=== PATIENT | female | born 1990 | race Caucasian/White ===

== ENCOUNTER 2018-06-22 05:07 | Emergency (ER) | payer OTHER ==
[2018-06-22] MEDS ORDERED: KETOROLAC 30 MG/ML INJ ONE (05:41)
[2018-06-22 06:01] LABS: Absolute Lymphocytes (CBC) 0.9 K/uL (0.7-4.9); Absolute Monocytes 0.6 K/uL (0.1-1.3); Absolute Neutrophil 6.6 K/uL (1.8-8.0); Basophils % 0.4 % (0-1.3); Eosinophils % 0.8 % (0-4.4); Hematocrit 37.1 % (36.0-45.0); Lymphocytes % 10.8 % (15.3-44.8); MPV 8.4 fL (7.6-11.3); Monocytes % 7.1 % (3.3-12.3); Protime INR 1.03
[2018-06-22 06:04] LABS: ALT/SGPT 14 U/L (12-78); AST/SGOT 16 U/L (15-37); Albumin 3.7 g/dL (3.4-5.0); Alkaline Phosphatase 90 U/L (45-117); BUN Blood Urea Nitrogen 13 mg/dL (7-18); Bicarbonate 21 mmol/L (21-32); Bilirubin Direct 0.2 mg/dL (0-0.2); Bilirubin Total 0.6 mg/dL (0.2-1.0); Glucose Level 101 mg/dL (74-106); Magnesium 1.6 mg/dL (1.8-2.4); NT PRO-BNP 80 pg/mL (<125); Potassium 3.5 mmol/L (3.5-5.1); Protein, Total 7.8 g/dL (6.4-8.2); Sodium Level 139 mmol/L (136-145); Troponin (Emerg Dept Use Only) < 0.02 ng/mL (0.0-0.045)
--- NOTE | 2018-06-22 06:36 | ER ---
Nurse's Notes [facility] Name: Iman Noguera Age: 28 yrs Sex: Female : 1990 Arrival Date: 06/22/2018 Time: 05:09 Bed 6 Private MD: Diagnosis: Myalgia;Lupus erythematosus Presentation: 06/22 05:18 Presenting complaint: Patient states: I have lupus and I'm having a flare up. My joints tl2 hurt really bad and it hurts to breathe. I have to take small short breaths and it feels like I'm not getting enough air so then I have to take a deeper breath and it hurts all the way to my back. Transition of care: patient was not received from another setting of care. Onset of symptoms was June 22, 2018 at 03:30. Risk Assessment: Do you want to hurt yourself or someone else? Patient reports no desire to harm self or others. Initial Sepsis Screen: Does the patient meet any 2 criteria? No. Patient's initial sepsis screen is negative. Does the patient have a suspected source of infection? No. Patient's initial sepsis screen is negative. Care prior to arrival: None. 05:18 Method Of Arrival: Wheelchair tl2 05:18 Acuity: DEBBY 3 tl2 Triage Assessment: 05:21 General: Appears in no apparent distress. uncomfortable, Behavior is cooperative, tl2 appropriate for age, anxious. Pain: Complains of pain in back and chest Pain currently is 10 out of 10 on a pain scale. Aggravated by increased activity, respiration. Neuro: Level of Consciousness is awake, alert, obeys commands, Oriented to person, place, time, situation. Cardiovascular: Chest pain is described as diffuse, is aggravated by breathing. Respiratory: Reports shortness of breath pain with respiration Breath sounds are clear bilaterally. Onset: The symptoms/episode began/occurred today, the patient has moderate shortness of breath. GI: No signs and/or symptoms were reported involving the gastrointestinal system. : No signs and/or symptoms were reported regarding the genitourinary system. Derm: Skin is pink, warm \T\ dry. 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 - Social history:: Smoking status: Patient/guardian denies using tobacco. - Ebola Screening: : No symptoms or risks identified at this time. Screenin:23 Abuse screen: Denies threats or abuse. Nutritional screening: No deficits noted. tl2 Tuberculosis screening: No symptoms or risk factors identified. Fall Risk None identified. Assessment: 05:21 General: see triage assessment. tl2 05:24 Cardiovascular: Rhythm is sinus rhythm. Respiratory: Airway is patent Respiratory tl2 effort is even, labored. 06:18 Reassessment: Patient appears in no apparent distress at this time. Patient and/or tl2 family updated on plan of care and expected duration. Pain level reassessed. Patient is alert, oriented x 3, equal unlabored respirations, skin warm/dry/pink. pt ambulatory to restroom Patient states feeling better. 06:42 Reassessment: Patient appears in no apparent distress at this time. Patient and/or tl2 family updated on plan of care and expected duration. Pain level reassessed. Patient is alert, oriented x 3, equal unlabored respirations, skin warm/dry/pink. pt verbalized understanding of discharge instructions, need for follow up and prescription usage Patient states feeling better. Vital Signs: 05:21 BP 116 / 90; Pulse 85; Resp 22; Temp 98.4(O); Pulse Ox 100% on R/A; Weight 45.36 kg; tl2 Height 5 ft. 0 in. (152.40 cm); Pain 10/10; 06:18 BP 109 / 70; Pulse 65; Resp 18; Pulse Ox 99% on R/A; tl2 06:42 BP 103 / 63; Pulse 62; Resp 18; Pulse Ox 99% on R/A; tl2 05:21 Body Mass Index 19.53 (45.36 kg, 152.40 cm) tl2 ED Course: 05:09 Patient arrived in ED. ds1 05:17 Anthony Ceballos MD is Attending Physician. tw4 05:20 Triage completed. tl2 05:21 Arm band placed on right wrist. Patient placed in an exam room. tl2 05:23 Patient has correct armband on for positive identification. Placed in gown. Bed in low tl2 position. Call light in reach. Side rails up X 1. Adult w/ patient. 05:30 Inserted saline lock: 22 gauge in left antecubital area, using aseptic technique. Blood tl2 collected. placed by WALLY Meehan. 05:34 Shefali Gutierres, RN is Primary Nurse. sajan 05:46 X-ray completed. Portable x-ray completed in exam room. Patient tolerated procedure jb2 well. 05:47 XRAY Chest (1 view) In Process Unspecified. EDMS 06:42 No provider procedures requiring assistance completed. IV discontinued, intact, tl2 bleeding controlled, No redness/swelling at site. Pressure dressing applied. Administered Medications: 05:35 Drug: TORadol 30 mg Route: IVP; Site: left antecubital; ea 06:19 Follow up: Response: No adverse reaction; Pain is decreased tl2 Outcome: 06:35 Discharge ordered by . tw4 06:44 Discharged to home ambulatory, with family. tl2 06:44 Condition: stable 06:44 Discharge instructions given to patient, family, Instructed on discharge instructions, follow up and referral plans. medication usage, Demonstrated understanding of instructions, follow-up care, medications, Prescriptions given X 1. 06:52 Patient left the ED. tl2 Signatures: Dispatcher [employer] EDW[place] Erick Rao jb2 Ana Campo ds1 Rebecca Lynch, RN RN tl2 Shefali Gutierres RN RN Anthony Fuentes MD MD tw4
--- NOTE | 2018-06-22 06:36 | EDPHYS ---
Physician Documentation [facility] Name: Iman Noguera Age: 28 yrs Sex: Female : 1990 Arrival Date: 06/22/2018 Time: 05:09 Bed 6 Private MD: ED Physician Anthony Ceballos HPI: 06/22 06:32 This 28 yrs old Female presents to ER via Wheelchair with complaints of tw4 Breathing Difficulty. 06:32 The patient has shortness of breath at rest. Onset: The symptoms/episode began/occurred tw4 2 day(s) ago. Duration: The symptoms are continuous, but are steadily getting better. The patient's shortness of breath is aggravated by exertion, is alleviated by nothing. Associated signs and symptoms: The patient has no apparent associated signs or symptoms. Severity of symptoms: At their worst the symptoms were moderate in the emergency department the symptoms are unchanged. The patient has not experienced similar symptoms in the past. 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 - Social history:: Smoking status: Patient/guardian denies using tobacco. - Ebola Screening: : No symptoms or risks identified at this time. ROS: 06:32 Constitutional: Negative for fever, chills, and weight loss, Cardiovascular: Negative tw4 for chest pain, palpitations, and edema, Abdomen/GI: Negative for abdominal pain, nausea, vomiting, diarrhea, and constipation, Back: Negative for injury and pain, MS/Extremity: Negative for injury and deformity, Skin: Negative for injury, rash, and discoloration, Neuro: Negative for headache, weakness, numbness, tingling, and seizure. 06:32 Respiratory: Positive for shortness of breath, Negative for cough, dyspnea on exertion, hemoptysis, orthopnea, pleurisy. Exam: 06:32 Head/Face: Normocephalic, atraumatic. Cardiovascular: Regular rate and rhythm with a tw4 normal S1 and S2. No gallops, murmurs, or rubs. Normal PMI, no JVD. No pulse deficits. Respiratory: Lungs have equal breath sounds bilaterally, clear to auscultation and percussion. No rales, rhonchi or wheezes noted. No increased work of breathing, no retractions or nasal flaring. 06:32 Abdomen/GI: Soft, non-tender, with normal bowel sounds. No distension or tympany. No guarding or rebound. No evidence of tenderness throughout. Back: No spinal tenderness. No costovertebral tenderness. Full range of motion. MS/ Extremity: Pulses equal, no cyanosis. Neurovascular intact. Full, normal range of motion. Neuro: Awake and alert, GCS 15, oriented to person, place, time, and situation. Cranial nerves II-XII grossly intact. Motor strength 5/5 in all extremities. Sensory grossly intact. Cerebellar exam normal. Normal gait. 06:32 Constitutional: The patient appears in obvious distress, mildly distressed. 06:32 Chest/axilla: Inspection: normal, Palpation: tenderness, of the anterior aspect of right upper chest, anterior aspect of left upper chest, mid-sternal area, right breast and left breast, that totally reproduces the patient's complaints. Vital Signs: 05:21 BP 116 / 90; Pulse 85; Resp 22; Temp 98.4(O); Pulse Ox 100% on R/A; Weight 45.36 kg; tl2 Height 5 ft. 0 in. (152.40 cm); Pain 10/10; 06:18 BP 109 / 70; Pulse 65; Resp 18; Pulse Ox 99% on R/A; tl2 06:42 BP 103 / 63; Pulse 62; Resp 18; Pulse Ox 99% on R/A; tl2 05:21 Body Mass Index 19.53 (45.36 kg, 152.40 cm) tl2 MDM: 05:17 Patient medically screened. tw4 06:32 Differential diagnosis: Anemia Anxiety Reaction asthma, Myocardial Infarction tw4 Pneumothorax pulmonary edema, Pulmonary Embolism reactive airway disease, Sepsis. Data reviewed: vital signs, nurses notes. Data interpreted: personnel monitor: rhythm is normal sinus rhythm, Pulse oximetry: Interpretation: normal. Test interpretation: by ED physician or midlevel provider: ECG, plain radiologic studies. Counseling: I had a detailed discussion with the patient and/or guardian regarding: the historical points, exam findings, and any diagnostic results supporting the discharge/admit diagnosis, lab results, radiology results. Medication response: Toradol relieved patient's pain. The symptoms have resolved. Response to treatment: the patient's symptoms have markedly improved after treatment, and as a result, I will discharge patient. Special discussion: Based on the patient's history, exam, and Dx evaluation, there is no indication for emergent intervention or inpatient Tx. It is understood by the patient/guardian that if the Sx's persist or worsen they need to return immediately for re-evaluation. I discussed with the patient/guardian in detail that at this point there is no indication for admission to the hospital. It is understood, however, that if the symptoms persist or worsen the patient needs to return immediately for re-evaluation. 06/22 05:17 Order name: Basic Metabolic Panel; Complete Time: 06:21 06/22 06:21 Interpretation: Normal except: CL 110. 06/22 05:17 Order name: CBC with Diff; Complete Time: 06:20 06/22 06:21 Interpretation: Normal except: STEPHANIE% 80.9; LYM% 10.8. 06/22 05:17 Order name: LFT's; Complete Time: 06:21 06/22 06:21 Interpretation: Normal except: GLOB 4.1; A/G 0.9. 06/22 05:17 Order name: Magnesium; Complete Time: 06:21 06/22 06:21 Interpretation: Normal except: MG 1.6. 06/22 05:17 Order name: NT PRO-BNP; Complete Time: 06:21 06/22 06:21 Interpretation: Within normal limits: NT PRO-BNP 80. 06/22 05:17 Order name: PT-INR 06/22 05:17 Order name: Troponin (emerg Dept Use Only); Complete Time: 06:21 06/22 06:21 Interpretation: TROPED < 0.02. 06/22 05:17 Order name: XRAY Chest (1 view) 06/22 05:17 Order name: EKG; Complete Time: 05:18 06/22 05:17 Order name: Cardiac monitoring; Complete Time: 05:34 06/22 05:17 Order name: EKG - Nurse/Tech; Complete Time: 05:34 06/22 05:17 Order name: IV Saline Lock; Complete Time: :06/22 05:17 Order name: Labs collected and sent; Complete Time: 06/22 05:17 Order name: O2 Per Protocol; Complete Time: 06/22 05:17 Order name: O2 Sat Monitoring; Complete Time: EC:32 Rate is 65 beats/min. Rhythm is regular, 1st Degree Block. QRS [place] is Normal. GA tw4 interval is normal. QRS interval is normal. QT interval is normal. No Q waves. T waves are Normal. No ST changes noted. Clinical impression: 1st degree heart block. Interpreted by me. Reviewed by me. Administered Medications: 05:35 Drug: TORadol 30 mg Route: IVP; Site: left antecubital; ea 06:19 Follow up: Response: No adverse reaction; Pain is decreased tl2 Disposition: 06/22/18 06:35 Discharged to Home. Impression: Myalgia, Lupus erythematosus. - Condition is Stable. - Discharge Instructions: Nonspecific Chest Pain, Muscle Pain, Adult, Pain Without a Known Cause, Chest Wall Pain, [id number]. - Prescriptions for Tramadol 50 mg Oral Tablet - take 1 tablet by ORAL route every 8 hours as needed; 12 tablet. - Medication Reconciliation Form, Thank You Letter, Antibiotic Education, Prescription Opioid Use form. - Follow up: Private Physician; When: Upon discharge from the Emergency Department; Reason: If symptoms return, Recheck today's complaints, Continuance of care. - Problem is new. - Symptoms have improved. Signatures: Dispatcher [employer] EDW[place] Rebecca Lynch RN RN tl2 Shefali Gutierres RN RN ea Wadley, Terrence, MD MD tw4 Corrections: (The following items were deleted from the chart) 06:52 06:35 06/22/2018 06:35 Discharged to Home. Impression: Myalgia; Lupus erythematosus. tl2 Condition is Stable. Forms are Medication Reconciliation Form, Thank You Letter, Antibiotic Education, Prescription Opioid Use. Follow up: Private Physician; When: Upon discharge from the Emergency Department; Reason: If symptoms return, Recheck today's complaints, Continuance of care. Problem is new. Symptoms have improved. tw4
--- NOTE | 2018-06-22 08:25 | RAD REPORT ---
EXAM DESCRIPTION: RAD - Chest Single View - 06/22/2018 5:49 am CLINICAL HISTORY: CHEST PAIN Chest pain. COMPARISON: No comparisons FINDINGS: Portable technique limits examination quality. The lungs are grossly clear. The heart is normal in size. No displaced fractures. IMPRESSION: No acute intrathoracic process suspected.
--- NOTE | 2018-06-22 17:09 | EKG ---
Test Date: 2018-06-22 Test Time: 05:28:18 Delivery Aide: ALICIA MEASUREMENT RESULTS: Intervals: Rate: 65 DC: 214 QRSD: 82 QT: 382 QTc: 397 [place]: P: 58 DC: 214 QRS: 69 T: 65 INTERPRETIVE STATEMENTS: Sinus rhythm with 1st degree AV block Otherwise normal ECG No previous ECG available for comparison Electronically Signed On 06-22-18 17:07:00 LAY OUT FORMER by John Caldwell
== END 2018-06-22 06:52 | disposition home or self-care (01) ==
LOC: ER 05:07
DX: L93.0 Discoid lupus erythematosus (principal); M79.10 Myalgia, unspecified site
CPT/HCPCS: 36415; 71045; 80048; 80076; 83735; 83880; 84484; 85025; 85610; 93005; 96374; 99284

== ENCOUNTER 2022-02-22 17:44 | Emergency (ER) | payer OTHER ==
--- OUTSIDE RECORDS SUMMARY | 2022-02-22 17:49 | XMS REPORT | Continuity of Care Document ---
:1990 Author Organization [facility] t Address [address] [place] [address] Dr. Rojas [address] [place] [address] Care Team Providers Name Role Phone Cheryle Attending Clinician Unavailable Shasta Guerrero Attending Clinician [phone] ONEIDA ERAZO Attending Clinician Unavailable Mya Lopez Attending Clinician Unavailable Samanta Noriega OD Attending Clinician Marissa GLASGOW, Alexander Chairez Attending Clinician [phone] Benja Hopper Admitting Clinician Unavailable Cheryle Admitting Clinician Unavailable Physician, No Primary or Family Admitting Clinician Unavaila ble Payers Payer Name Policy Type Policy Number Effective Date Expiration Date S lela AETNA (POS) [id number] 2019 00:00:00 OPEN ACCESS [id number] 2013 00:00:00 HMO/POS/EPO/PPO - [employer]ET[employer] Problems Condition Condition Condition Status Onset Resolution Last Treating Co mments Source Name Details Category Date Date Treatment Clinician Date Keratoconj Keratoconj Disease Active [facility] unctivitis unctivitis 07-26 [employer] llege sicca sicca 00:00: of (HCCode) (HCCode) 00 Medici n e Dry eye Dry eye Disease Active [facility] -04 [place] 00:00: of 00 Medicin e 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-04 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 00 Medicin eyes eyes e Joint pain Joint Diagnosis Active 2021-10-03 Memoria pain 02:57:38 l Active [facility] 10/03/2021 Adan Franco Pleurisy Pleurisy Diagnosis Active 2021-10-03 Memoria Active 02:57:38 l Diagnosis [place] 10/03/2021 Adan Franco Lumbago Lumbago Diagnosis Active 2021-02-22 Memoria Active 02:45:52 l Diagnosis [place] 02/22/2021 Adan Franco Diagnosis Active 2019-04-21 Memoria 03:45:50 l Active [facility] Diagnosis 04/21/2019 Adan Franco Memory Memory Diagnosis Active 2021-10-03 Me moria loss loss 02:57:38 l Active [facility] Diagnosis 10/03/2021 Adan Franco Abnormal Abnormal Problem Active 2021-03-21 Memoria laboratory laboratory 02:45:31 l test test [place] Active Problem 03/21/2021 Adan Franco Encounter Encounter Problem Active 2021-10-03 Memoria for drug for drug 02:57:38 l therapy therapy [place] Active Problem 10/03/2021 Adan Franco 11 weeks 11 weeks Problem Active 2021-03-21 Memoria gestation gestation 02:45:31 l of of [facility] Active Problem 03/21/2021 Adan Franco Headache Headache Diagnosis Active 2021-10-03 Memoria Active 02:57:38 l Diagnosis [place] 10/03/2021 Adan Franco Lupus Lupus Problem Active 2021-10-03 Memor ia Active 02:57:38 l Problem [facility] 10/03/2021 Adan Franco Allergies, Adverse Reactions, Alerts Allergy Allergy Status Severity Reaction(s) Onset Inactive Treating Comm ents Source Name Type Date Date Clinician imuran imuran Active leukopenia 2020-05 Memori a (1.5) 2-21 l 00:00: [place] 00 No Known DA Active U 2014-05 [facility] Allergie 0-02 Clear s 00:00: De 00 [facility] No Known DA Active U 2014-05 [facility] Allergie 0-02 Clear s 00:00: De 00 [facility] Social History Social Habit Start Date Stop Date Quantity Comments Source Sex Assigned At [facility] Exposure to SARS-CoV-2 Not sure [facility] (event) Medicine Smoking Status Start Date Stop Date Source Never smoker [facility] Medicine Medications Ordered Filled Start Stop Current Ordering Indication Dosage Frequency Signature Comments Components Source Medication Medication Date Date Medication? Clinician (SIG) Name Name ibuprofen Yes Juan Franciscoeha 1 tab Michael puneet 5-12 Sudha l 02:57: [place] 38 Prednisone Yes Giovany 3 tablets Memoria Taper 2-07 Franco for 5 l 00:00: days, 2 [facility] 00 tablets for 5 days and then 1 tablet for 5 days Prednisone Yes Giovany 3 tablets Memoria Taper 2-03 Franco for 5 l 00:00: days, 2 [place] 00 tablets for 5 days and then 1 tablet for 5 days Lotemax 2020-05 Yes Iman 1 drop Memori a 2-23 Garcia into l 03:50: affected [place] 52 eye Medrol Dose 2020-05 Yes Iman as Michael puneet Aman 2-21 Garcia directed l 00:00: [place] 00 Cyclobenzap Yes Iman 1 tablet Memoria rine HCl 9-30 Garcia at bedtime l 00:00: as needed [place] 00 Prednisone Yes Iman 3 tablets Memoria Taper 9-27 Garcia for 5 l 00:00: days, 2 [place] 00 tablets for 5 days and then 1 tablet for 5 days Ibuprofen Yes Gumaro 1 tablet Mem oria 6-26 Rosenbaum with food l 02:55: or milk as 21 needed Yes Gumaro 1 tablet Michael puneet 6-26 Rosenbaum l 02:55: 21 Sertraline Yes Gumaro 1 tablet Me moria HCl 6-26 Rosenbaum l 02:55: 21 Tylenol Yes Gumaro 1 tablet Memor ia 6-26 Rosenbaum as needed l 02:55: 21 Prednisone Yes Gumaro 3 tablets M emoria Taper 5-13 Rosenbaum for 5 l 00:00: days, 2 [place] 00 tablets for 5 days and then 1 tablet for 5 days Prednisone Yes Giovany 3 tablets Memoria Taper 2-22 Franco for 5 l 00:00: days, 2 [place] 00 tablets for 5 days and then 1 tablet for 5 days Promethazin 2020-0 Yes Gumaro 1/5 tablet Memoria e HCl 1-19 Rosenbaum as needed l 03:45: [facility] 32 Lotemax 2020-0 Yes Gumaro 1 drop Memoria 1-19 Rosenbaum into l 03:45: affected [facility] 32 eye Prednisone 2019-1 Yes Gumaro 3 tablets M emoria Taper 2-22 Rosenbaum for 5 l 00:00: days, 2 [facility] 00 tablets for 5 days and then 1 tablet for 5 days Hydroxychlo 2020-1 Yes Iman 1 tablet Memoria roquine 1-30 Garcia with food l Sulfate 00:00: or milk Refresh Dry 2019-0 Yes Iman as Michael puneet Eye Therapy 6-14 Garcia directed l 02:45: [place] 18 2020-0 Yes Iman 1 tablet Mem oria 6-14 Garcia l 02:45: [place] 18 Iron 2020-0 Yes Iman 1 tablet Memoria 6-14 Garcia l 02:45: [place] 18 Aspirin 2020-0 Yes Iman 1 tablet Michael puneet 5-05 Garcia l 02:46: [place] 06 Restasis 2020-0 Yes Iman 1 drop Memor ia 5-05 Garcia into l 02:46: affected [place] 06 eye Iron 2020-0 Yes Iman 1 tablet Memoria 5-05 Garcia l 02:46: [facility] 06 Prednisone 2020-0 Yes Iman 3 tablets Memoria Taper 4-23 Garcia for 5 l 00:00: days, 2 [facility] 00 tablets for 5 days and then 1 tablet for 5 days penicillin 2020-0 2020- No 500mg Take 500 [facility] v potassium 4-02 04-02 mg by Bennett e (VEETID) 19:24: 00:00 mouth four of 500 MG 26 :00 times Medicin tablet daily. e Hydroxychlo 2020-0 Yes Iman 1 tablet Memoria roquine 3-16 Garcia with food l Sulfate 00:00: or milk aspirin EC 2020-0 Yes 81mg Take 81 mg [facility] 81 MG 3-04 by mouth College tablet 15:09: daily. of 23 Medicin e aspirin EC 2020-0 Yes 81mg Take 81 mg [facility] 81 MG 3-04 by mouth College tablet 15:09: daily. of 23 Medicin e aspirin EC 2020-0 Yes 81mg Take 81 mg [facility] 81 MG 3-04 by mouth College tablet 15:09: daily. of 23 Medicin e aspirin EC 2020-0 Yes 81mg Take 81 mg [facility] a[facility]or 81 MG 3-04 by mouth College tablet 15:09: daily. of 23 Medicin e penicillin 2020-0 Yes 500mg Take 500 Ba ylor v potassium 3-04 mg by College (VEETID) 15:09: mouth four of 500 MG 00 times Medicin tablet daily. e cycloSPORIN 2020-0 Yes 1 drop [facility]l or E 3-04 into College (RESTASIS) 15:08: affected of 0.05 % 31 eye Medicin ophthalmic e emulsion promethazin 2020-0 Yes 1/5 tablet [facility] e 3-04 as needed College (PHENERGAN) 15:08: of 25 MG 31 Medicin suppository e loteprednol 2020-0 Yes 1 drop [facility] or (LOTEMAX) 3-04 into College 0.5 % 15:08: affected of ophthalmic 31 eye Medicin suspension e cycloSPORIN 2020-0 Yes 1 drop [facility]l or E 3-04 into College (RESTASIS) 15:08: affected of 0.05 % 31 eye Medicin ophthalmic e emulsion promethazin 2020-0 Yes 1/5 tablet Gabo e 3-04 as needed College (PHENERGAN) 15:08: of 25 MG 31 Medicin suppository e loteprednol 2020-0 Yes 1 drop [facility] or (LOTEMAX) 3-04 into College 0.5 % 15:08: affected of ophthalmic 31 eye Medicin suspension e cycloSPORIN 2020-0 Yes 1 drop [facility]l or E 3-04 into College (RESTASIS) 15:08: affected of 0.05 % 31 eye Medicin ophthalmic e emulsion promethazin 2020-0 Yes 1/5 tablet [facility] e 3-04 as needed College (PHENERGAN) 15:08: of 25 MG 31 Medicin suppository e loteprednol 2020-0 Yes 1 drop [facility] or (LOTEMAX) 3-04 into College 0.5 % 15:08: affected of ophthalmic 31 eye Medicin suspension e cycloSPORIN 2020-0 Yes 1 drop [facility]l or E 3-04 into College (RESTASIS) 15:08: affected of 0.05 % 31 eye Medicin ophthalmic e emulsion promethazin 2019- Yes 1/5 tablet [facility] e 3-04 as needed College (PHENERGAN) 15:08: of 25 MG 31 Medicin suppository e loteprednol 2019- Yes 1 drop [facility] or (LOTEMAX) 3-04 into College 0.5 % 15:08: affected of ophthalmic 31 eye Medicin suspension e Childrens Yes Iman as Memori a Advil 2-26 Garcia directed l 03:47: [place] 48 Promethazin 0 Yes Iman 1/5 tablet Memoria e HCl 2-26 Garcia as needed l 03:47: [place] 48 Cymbalta 0 Yes Giovany 1 capsule Me moria 1-14 Franco l 03:45: Hydroxychlo 2019- Yes Iman 1 tablet Memoria roquine 2-05 Garcia with food l Sulfate 00:00: or milk Vitamin D 2019-0 Yes Giovany 1 capsule M emoria (Ergocalcif 7-22 Franco l maryuri) 00:00: CellCept 2019-0 Yes Giovany 1 tablet Mem oria 7-19 Franco l 00:00: Azathioprin 2019-0 Yes Wajeeha 1 tab Me moria e 3-15 Sudha l 00:00: PredniSONE 2019-0 Yes Wajeeha 2 tablet Memoria 2-14 Sudha with food l 00:00: or milk Prednisone 2019-0 Yes Wajeeha 3 tablets Memoria Taper 1-31 Sudha for 5 l 00:00: days, 2 00 tablets for 5 days and then 1 tablet for 5 days Hydroxychlo 2019-0 Yes Wajeeha 1 tablet Memoria roquine 1-30 Sudha with food l Sulfate 00:00: or milk hydroxychlo 2019-0 Yes 1 tablet Ba ylor roquine 1-30 with [facility] (PLAQUINIL) 00:00: or milk of 200 MG 00 Medicin tablet e hydroxychlo 2019-0 Yes 1 tablet Ba ylor roquine 1-30 with [facility] (PLAQUINIL) 00:00: or milk of 200 MG 00 Medicin tablet e hydroxychlo 2019-0 Yes 1 tablet Ba ylor roquine 1-30 with [employer] [facility] (PLAQUINIL) 00:00: or milk of 200 MG 00 Medicin tablet e hydroxychlo 2019-0 Yes 1 tablet Ba ylor roquine 1-30 with [employer] [facility] (PLAQUINIL) 00:00: or milk of 200 MG 00 Medicin tablet e Vital Signs Vital Name Observation Time Observation Value Comments Source Weight 2019-07-12 21:45:00 [facility] [place] Height 2019-07-12 21:45:00 [facility] [place] Temperature Oral (F) 2019-07-12 21:45:00 98.3 F [facility] Heart Rate 2019-07-12 21:45:00 [facility] [place] Diastolic (mm Hg) 2019-07-12 21:45:00 Mem orial [place] Systolic (mm Hg) 2019-07-12 21:45:00 Michael jada [place] Weight 2019-05-10 19:00:00 [facility] [place] Height 2019-05-10 19:00:00 [facility] [place] Temperature Oral (F) 2019-05-10 19:00:00 97.8 F [facility] Heart Rate 2019-05-10 19:00:00 [facility] [place] Diastolic (mm Hg) 2019-05-10 19:00:00 Mem orial [place] Systolic (mm Hg) 2019-05-10 19:00:00 Michael jada [facility] Weight 2018-12-10 14:45:00 Memorial [place] Height 2018-12-10 14:45:00 [facility] [place] Temperature Oral (F) 2018-12-10 14:45:00 98.8 F [facility] [place] Heart Rate 2018-12-10 14:45:00 [facility] [place] Diastolic (mm Hg) 2018-12-10 14:45:00 Mem orial [place] Systolic (mm Hg) 2018-12-10 14:45:00 Michael rial [facility] Weight 2018-09-17 15:00:00 [facility] [place] Height 2018-09-17 15:00:00 [facility] [place] Temperature Oral (F) 2018-09-17 15:00:00 98.2 F [facility] Heart Rate 2018-09-17 15:00:00 [facility] [place] Diastolic (mm Hg) 2018-09-17 15:00:00 Mem orial [place] Systolic (mm Hg) 2018-09-17 15:00:00 Michael rial [place] Weight 2018-08-06 14:45:00 [facility] [place] Height 2018-08-06 14:45:00 [facility] [place] Temperature Oral (F) 2018-08-06 14:45:00 97.4 F [facility] [place] Heart Rate 2018-08-06 14:45:00 [facility] [place] Diastolic (mm Hg) 2018-08-06 14:45:00 Mem orial [place] Systolic (mm Hg) 2018-08-06 14:45:00 Michael rial [place] Procedures Procedure Date / Time Performed Performing Clinician Nancy stewart [id number] 2019-11-22 00:00:00 MILJO.01 [facility] [id number] 2019-11-22 00:00:00 MILJO.01 [facility] [id number] 2019-11-22 00:00:00 MILJO.01 [facility] [id number] 2019-11-22 00:00:00 MILJO.01 [facility] CORNEAL TOPOGRAPHY - 2019-07-27 16:07:07 [facility] - BOTH EYES C. Medicine Plan of Care Planned Activity Planned Date Details Comments Source Future Scheduled Test HIV SCREENING [code = [facility] HIV SCREENING] Medicine Future Scheduled Test CERVICAL CANCER [facility] of [facility] 3 YEAR Medicine FOLLOW UP [code = CERVICAL CANCER SCREENING 3 YEAR FOLLOW UP] Future Scheduled Test FLU VACCINE > 6 [facility] of MONTHS [code = FLU Medicine VACCINE > 6 MONTHS] Future Scheduled Test TETANUS SHOT (ADULT) [facility] [code = TETANUS SHOT Medicin e (ADULT)] Future Scheduled Test HIV SCREENING [code = [facility] HIV SCREENING] Medicine Future Scheduled Test CERVICAL CANCER [facility] of SCREENING 3 YEAR Medicine FOLLOW UP [code = CERVICAL CANCER SCREENING 3 YEAR FOLLOW UP] Future Scheduled Test FLU VACCINE > 6 [facility] [code = FLU Medicine VACCINE > 6 MONTHS] Future Scheduled Test TETANUS SHOT (ADULT) [facility] [code = TETANUS SHOT Medicin e (ADULT)] Future Scheduled Test HIV SCREENING [code = [facility] HIV SCREENING] Medicine Future Scheduled Test CERVICAL CANCER [facility] of SCREENING 3 YEAR Medicine FOLLOW UP [code = CERVICAL CANCER SCREENING 3 YEAR FOLLOW UP] Future Scheduled Test FLU VACCINE > 6 [facility] [employer] [facility] [employer] [code = FLU Medicine VACCINE > 6 MONTHS] Future Scheduled Test TETANUS SHOT (ADULT) [facility] [code = TETANUS SHOT Medicin e (ADULT)] Future Scheduled Test HIV SCREENING [code = [facility] HIV SCREENING] Medicine Future Scheduled Test CERVICAL CANCER [facility] 3 YEAR Medicine FOLLOW UP [code = CERVICAL CANCER SCREENING 3 YEAR FOLLOW UP] Future Scheduled Test FLU VACCINE > 6 [facility] [code = FLU Medicine VACCINE > 6 MONTHS] Future Scheduled Test TETANUS SHOT (ADULT) [facility] [code = TETANUS SHOT Medicin e (ADULT)] Encounters Start End Encounter Admission Attending Care Care Encounter Source Date/Time Date/Time Type Type Clinicians Facility Department ID 2022-02-22 Outpatient [id number] Memoria 17:47:26 [id number] [place] [id number] 2019-11-20 Inpatient [facility] [id number] [facility] 15:49:00 62 [facility] 2022-02-11 2022-02-11 Outpatient FOG_Wimberl AOSM AOSM [id number] Ana 00:00:00 00:00:00 Crow [id number] [facility] 2022-01-26 2022-01-26 Outpatient FOG_Wimberl AOSM AOSM [id number] Ana 00:00:00 00:00:00 Crow [id number] [facility] 2021-12-21 2021-12-21 Outpatient FOG_Wimberl AOSM AOSM [id number] Ana 00:00:00 00:00:00 Crow [id number] [facility] 2021-11-29 2021-11-29 Outpatient FOG_Wimberl AOSM AOSM [id number] Ana 01:54:00 01:54:00 Crow [id number] [facility] 2021-11-29 2021-11-29 Outpatient Moughrabi, AOSM AOSM [id number] 00:00:00 00:00:00 Shasta Darden [id number] 2021-11-15 2021-11-15 Outpatient FOG_Wimberl AOSM AOSM [id number] Ana 03:37:00 03:37:00 ey_Ivory [id number] [facility] 2021-11-15 2021-11-15 Outpatient FOG_Wimberl AOSM AOSM [id number] Ana 03:37:00 03:37:00 jocy_Ivory [id number] [facility] Medicin e 2021-07-01 2021-07-01 Outpatient Giovany A Giovany A [id number] MH 10:27:00 10:27:00 Joan Franco MD Ph illip PA ISABEL Franco MD 2021-06-27 2021-06-27 Outpatient Giovany A Giovany A [id number] MH 17:00:00 17:00:00 Joan Franco MD Ph illip PA PA Sammi Franco MD 2021-05-14 2021-05-14 Outpatient Giovany A Giovany A [id number] 15:45:00 15:45:00 Joan Franco MD Ph joseip PA ISABEL Franco MD 2021-04-22 2021-04-22 Outpatient KACEY [facility] [id number] [facility] 09:58:34 10:58:23 ONEIDA la of Medicin e 2021-03-20 2021-03-20 Outpatient Giovany A Giovany A [id number] MH 09:09:00 09:09:00 Joan Franco MD Ph joseip PA ISABEL Franco MD 2021-02-21 2021-02-21 Outpatient Giovany A Giovany A [id number] MH 11:00:00 11:00:00 Joan Franco MD, Ph illip PA ISABEL Franco MD 2021-02-18 2021-02-18 Outpatient Giovany A Giovany A [id number] MH 16:43:00 16:43:00 Joan Franco MD, Ph illip PA ISABEL Franco MD 2021-01-10 2021-01-10 Outpatient Giovany A Giovany A [id number] MH 08:45:00 08:45:00 Joan Franco MD Ph illip PA PA A. Joan LGASGOW 2020-11-12 2020-11-12 Outpatient Giovany A Giovany A [id number] MH 12:01:00 12:01:00 Joan Franco MD Ph illip PA PA A. Joan GLASGOW 2020-10-11 2020-10-11 Outpatient Giovany A Giovany A [id number] MH 11:15:00 11:15:00 Joan Franco MD Ph illip PA PA A. Joan GLASGOW 2020-10-04 2020-10-04 Outpatient Giovany A Giovany A [id number] MH 15:35:00 15:35:00 Joan Franco MD Ph illip PA PA A. Joan GLASGOW 2020-07-25 2020-07-25 Outpatient Giovany A Giovany A [id number] MH 12:46:00 12:46:00 Joan Franco MD Ph illip PA PA A. Joan GLASGOW 2020-07-16 2020-07-16 Outpatient Giovany A Giovany A [id number] MH 10:41:00 10:41:00 Joan Franco MD Ph illip PA PA A. Joan GLASGOW 2020-05-15 2020-05-15 Outpatient Giovany A Giovany A [id number] MH 15:30:00 15:30:00 Joan Franco MD Ph illip PA PA A. Joan GLASGOW 2020-04-23 2020-04-23 Outpatient Giovany A. Giovany A. [id number] MH 10:37:00 10:37:00 Joan Franco MD Phi llip MD PA PA A. Waller MD 2020-04-23 2020-04-23 Outpatient Giovany A. Giovany A. [id number] MH 10:32:00 10:32:00 Joan Franco MD Phi llip MD PA PA A. Waller MD 2019-11-17 2019-11-17 Outpatient CAN Lopez LABO [id number] [facility] 12:13:00 12:13:[address] 2019-11-01 2019-11-01 Outpatient Giovany A Giovany A [id number] MH 15:45:00 15:45:00 Joan Franco MD 2019-10-13 2019-10-13 Office Hemmati, BCM [id number] [facility] 15:28:10 17:09:13 Visit Samanta AMBULATOR [id number] Y 0.2.7.2.686 [id number] 2019-10-13 2019-10-13 Office Hemmati, BCM [id number] [place] [address] 15:28:10 17:09:13 Visit Samanta AMBULATOR [id number] College Y 0.2.7.2.686 of [id number] [facility] lety 300 e 2019-10-10 2019-10-10 Office Hemmati, BCM 1.2.840.114 [id number] 15:12:33 16:51:46 Visit Samanta AMBULATOR 350.1.13.21 Y 0.2.7.2.686 [id number] 300 2019-10-10 2019-10-10 Office Hemmati, BCM [id number] [facility] 15:12:33 16:51:46 Visit Samanta AMBULATOR 350.1.13.21 College Y 0.2.7.2.686 of [id number] [facility] 300 e 2019-09-26 2019-09-26 Outpatient Giovany A Giovany A [id number] MH 08:59:00 08:59:00 Joan Franco MD 2019-09-15 2019-09-15 Outpatient Giovany A Giovany A [id number] MH 15:45:00 15:45:00 Joan Franco MD 2019-08-25 2019-08-25 Office Hemmati, BCM [id number] 14:00:43 16:29:50 Visit Samanta AMBULATOR 350.1.13.21 Y 0.2.7.2.686 [id number] 2019-08-25 2019-08-25 Office Hemmati, BCM [id number] [facility] 14:00:43 16:29:50 Visit Asmanta AMBULATOR 350.1.13.21 College Y 0.2.7.2.686 of [id number] [facility] 300 e 2019-08-11 2019-08-11 Outpatient Giovany A Giovany A [id number] MH 14:14:00 14:14:00 Joan Franco MD 2019-07-27 2019-07-27 Office Pflugfelder BCM 1.2.840.114 [id number] 09:01:50 09:21:50 Visit , Alexander AMBULATOR 350.1.13.21 C. Y 0.2.7.2.686 [id number] 300 2019-07-27 2019-07-27 Office Pflugfelder BCM [id number] [facility] 09:01:50 09:21:50 Visit , Alexander AMBULATOR 350.1.13.21 College C. Y 0.2.7.2.686 of [id number] [facility] 300 e 2019-07-12 2019-07-12 Outpatient Giovany A Giovany A [id number] MH 15:45:00 15:45:00 Joan Franco MD 2019-05-10 2019-05-10 Outpatient Giovany A Giovany A [id number] MH 13:00:00 13:00:00 Joan Franco MD 2019-04-27 2019-04-27 Outpatient Giovany A. Giovany A. [id number] MH 14:17:00 14:17:00 Joan Franco MD Phi llip MD PA PA A. Waller MD 2019-04-26 2019-04-26 Outpatient Giovany A. Giovany A. [id number] MH 16:28:00 16:28:00 Joan Franco MD Phi llip MD PA PA A. Waller MD 2019-04-12 2019-04-12 Outpatient Giovany A. Giovany A. [id number] MH 15:40:00 15:40:00 Joan Franco MD Phi llip MD PA PA A. Joan GLASGOW 2018-12-13 2018-12-13 Outpatient Giovany A Giovany A [id number] MH 14:55:00 14:55:00 Joan Franco MD Ph illip PA PA A. Joan GLASGOW 2018-12-10 2018-12-10 Outpatient Giovany A Giovany A [id number] MH 09:45:00 09:45:00 Joan Franco MD Ph illip PA PA A. Joan GLASGOW 2018-10-23 2018-10-23 Outpatient Giovany A Giovany A [id number] MH 18:33:00 18:33:00 Joan Franco MD Ph illip PA PA A. Joan GLASGOW 2018-10-07 2018-10-07 Outpatient Giovany A Giovany A [id number] MH 13:12:00 13:12:00 Joan Franco MD Ph illip PA PA A. Joan GLASGOW 2018-09-21 2018-09-21 Outpatient Giovany A Giovany A [id number] MH 15:44:00 15:44:00 Joan Franco MD Ph illip PA PA A. Joan GLASGOW 2018-09-17 2018-09-17 Outpatient Giovany A. Giovany A. [id number] MH 10:00:00 10:00:00 Joan Franco MD Phi llip MD PA PA A. (INACTIVE (INACTIVE) Wal casandra ) 2018-09-17 2018-09-17 Outpatient Giovany A Giovany A [id number] MH 10:00:00 10:00:00 Joan Franco MD Ph illip PA PA A. Joan GLASGOW 2018-08-06 2018-08-06 Outpatient Giovany A Giovany A [id number] MH 09:45:00 09:45:00 Joan Franco MD Ph illip PA PA A. Joan GLASGOW 2018-07-08 2018-07-08 Outpatient Giovany A Giovany A [id number] MH 08:41:00 08:41:00 Joan Franco MD Ph illip PA PA A. Joan GLASGOW 2018-06-24 2018-06-24 Outpatient Giovany A Giovany A [id number] MH 12:11:00 12:11:00 Joan Franco MD Ph illip PA PA A. Joan GLASGOW 2018-06-24 2018-06-24 Outpatient Giovany A Giovany A [id number] 12:08:00 12:08:00 Joan Franco MD brittaney Franco MD Results Test Description Test Time Test Comments Results Result Comments Source HGB HCT 2019-11-22 06:48:00 Test Item Value Reference Range Interpretation Comme nts HEMOGLOBIN (test code = HGB) 8.4 g/dL 10.7-13.9 L Results verified by repeat analysis HEMATOCRIT (test code = HCT) 24.8 % 32.1-42.1 L Results verified by repeat analysis AG HEPATITIS B [id number] 23:02:00 Test Item Value Reference Range Interpretation Comments AG HEPATITIS B SURFACE (test code NONREACTIVE NONREACTIVE = HBSAG) IS CONSENT FORM SIGNED FOR HIV TESTING? YAB HEPATITIS C [id number] 23:02:00 Test Item Value Reference Range Interpretation Comments AB HEPATITIS C (test code = NONREACTIVE NONREACTIVE HCVAB) SIGNAL TO CUTOFF (test code = 0.04 <0.80 N CUTOFF) IS CONSENT FORM SIGNED FOR HIV TESTING? YAB [id number] 23:02:00 Test Item Value Reference Range Interpretation Comments AB TREPONEMA (test code = TREPAB) NONREACTIVE NONREACTIVE IS CONSENT FORM SIGNED FOR HIV TESTING? YAB HIV 1 23:02:00 Test Item Value Reference Range Interpretation Comments AB HIV 1 2 (test NONREACTIVE NONREACTIVE Done by [facility] code = [id number]) 4th Gen HIV Ag/Ab Combo Screen IS CONSENT FORM SIGNED FOR HIV TESTING? YAG HEPATITIS B [id number] 22:43:00 Test Item Value Reference Range Interpretation Comments AG HEPATITIS B SURFACE (test code NONREACTIVE NONREACTIVE = HBSAG) IS CONSENT FORM SIGNED FOR HIV TESTING? YAB HEPATITIS C [id number] 22:43:00 Test Item Value Reference Range Interpretation Comments AB HEPATITIS C (test code = HCVAB) NONREACTIVE SIGNAL TO CUTOFF (test code = CUTOFF) <0.80 IS CONSENT FORM SIGNED FOR HIV TESTING? YAB [id number] 22:43:00 Test Item Value Reference Range Interpretation Comments AB TREPONEMA (test code = TREPAB) NONREACTIVE NONREACTIVE IS CONSENT FORM SIGNED FOR HIV TESTING? YAB HIV 1 22:43:00 Test Item Value Reference Range Interpretation Comments AB HIV 1 2 (test code = [id number]) NONREACTIVE IS CONSENT FORM SIGNED FOR HIV TESTING? YCBC W/AUTO [id number] 21:51:00 Test Item Value Reference Range Interpretation Comments WHITE BLOOD CELL (test code = WBC) 8.7 K/mm3 6.6-12.1 N RED BLOOD CELL (test code = RBC) 3.44 M/mm3 3.45-5.01 L HEMOGLOBIN (test code = HGB) 11.3 g/dL 10.7-13.9 N HEMATOCRIT (test code = HCT) 32.6 % 32.1-42.1 N MEAN CELL VOLUME (test code = MCV) 95 fL 84.1-94.8 H MEAN CELL HGB (test code = MCH) 32.8 pg 27-35 N MEAN CELL HGB CONCETRATION (test 34.7 gm/dL 32.2-34.1 H code = MCHC) RED CELL DISTRIBUTION WIDTH (test 12.2 % 12.4-16.5 L code = RDW) PLATELET COUNT (test code = PLT) 167 K/mm3 133-385 N MEAN PLATELET VOLUME (test code = 10.7 fl 9.1-12.7 N MPV) NEUTROPHIL % (test code = NT%) 80.9 % 56.5-79.4 H LYMPHOCYTE % (test code = LY%) 13.5 % 14.3-34.3 L MONOCYTE % (test code = MO%) 5.0 % 5.1-10.4 L EOSINOPHIL % (test code = EO%) 0.1 % 0.1-3.0 N BASOPHIL % (test code = BA%) 0.2 % 0.1-1.0 N NEUTROPHIL # (test code = NT#) 7.0 K/mm3 LYMPHOCYTE # (test code = LY#) 1.2 K/mm3 MONOCYTE # (test code = MO#) 0.4 K/mm3 EOSINOPHIL # (test code = EO#) 0.01 K/mm3 BASOPHIL # (test code = BA#) 0.0 K/mm3 RBC MORPHOLOGY REQUIRED (test code NORMAL NORMAL = RBCM) PLATELET MORPHOLOGY REQUIRED (test NORMAL NORMAL code = PLTMR) Novel Coronavirus 2019 [id number] 02:49:00 Test Item Value Reference Range Interpretation Comments Novel Coronavirus 2019 Inhouse (test Negative Negative code = COVNONPUI) Novel Coronavirus 2019 [id number] 02:48:00 Test Item Value Reference Range Interpretation Comments Novel Coronavirus 2019 Inhouse (test Negative Negative code = COVNONPUI) CORNEAL TOPOGRAPHY - OU - BOTH [id number] 16:07:07 Test Item Value Reference Range Interpretation Comments Astigmatism (OS) (test code = 607772) Astigmatism (OD) (test code = 299025) OMARI (test code = OMARI) Right EyeFindings include irregular astigmatism. Astigmatism is 2.99. Left EyeFindings include irregular astigmatism. Astigmatism is 1.22. NotesSRI: OD: 0.50; OS:1.22 [facility]
[2022-02-22 18:52] LABS: Hematocrit 36.4 % (36.0-45.0); Lymphocytes % 24.4 % (15.3-44.8); MCV 91.7 fL (80-100); MPV 7.6 fL (7.6-11.3); RBC Red Blood Cell Count 3.97 M/uL (3.86-4.86)
[2022-02-22 18:55] LABS: Protime INR 1.11
[2022-02-22 19:14] LABS: Albumin 3.8 g/dL (3.4-5.0); Bilirubin Total 0.5 mg/dL (0.2-1.0); Potassium 3.5 mmol/L (3.5-5.1); Protein, Total 8.2 g/dL (6.4-8.2); Troponin High Sensitivity 3.1 pg/mL (<58.9)
--- NOTE | 2022-02-22 19:42 | RAD REPORT ---
EXAM DESCRIPTION: CT - Head Brain Wo Cont - 02/22/2022 7:08 pm CLINICAL HISTORY: paresthesias of L arm and L face COMPARISON: No comparisons TECHNIQUE: Axial 5 mm thick images of the head were obtained without IV contrast. All CT scans are performed using dose optimization technique as appropriate and may include automated exposure control or mA/KV adjustment according to patient size. FINDINGS: No intracranial hemorrhage, mass, edema or shift of mid-line structures. No acute infarcti on changes seen. No abnormal extra-axial fluid collections. Ventricles are normal. Mastoid air cells and visualized portions of the paranasal sinuses are clear. No acute bony findings. IMPRESSION: Negative non-contrast CT head examination.
--- NOTE | 2022-02-22 20:12 | ER ---
Nurse's Notes [facility] Name: Iman Noguera Age: 31 yrs Sex: Female : 1990 Arrival Date: 02/22/2022 Time: 17:45 Bed 8 Private MD: Diagnosis: Left face and arm heaviness Presentation: 02/22 17:53 Chief complaint: Patient states: About 20 minutes ago I suddenly noticed that my left bm7 arm was getting tingly and heavy and it spread up to my my left eye and left side of my face. Coronavirus screen: At this time, the client does not indicate any symptoms associated with coronavirus-19. Ebola Screen: No symptoms or risks identified at this time. Initial Sepsis Screen: Does the patient meet any 2 criteria? No. Patient's initial sepsis screen is negative. Does the patient have a suspected source of infection? No. Patient's initial sepsis screen is negative. Risk Assessment: Do you want to hurt yourself or someone else? Patient reports no desire to harm self or others. Onset of symptoms was February 22, 2022 at 17:40. 17:53 Method Of Arrival: Ambulatory 7 17:53 Acuity: DEBBY 3 bm7 Triage Assessment: 17:56 General: Appears in no apparent distress. comfortable, Behavior is calm, cooperative, bm7 appropriate for age. Pain: Denies pain. EENT: No deficits noted. No signs and/or symptoms were reported regarding the EENT system. Neuro: Level of Consciousness is awake, alert, obeys commands, Oriented to person, place, time, situation, [place] Encaser are equal bilaterally Moves all extremities. Gait is steady, Speech is normal, Facial symmetry appears normal, Pupils are PERRLA, Reports weakness in left arm Denies blurred vision headache. Cardiovascular: No deficits noted. Respiratory: No deficits noted. GI: No deficits noted. No signs and/or symptoms were reported involving the gastrointestinal system. : No deficits noted. No signs and/or symptoms were reported regarding the genitourinary system. Derm: No deficits noted. No signs and/or symptoms reported regarding the dermatologic system. Musculoskeletal: No deficits noted. No signs and/or symptoms reported regarding the musculoskeletal system. 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 - Social history:: Smoking status: Patient denies any tobacco usage or history of. Screenin:59 Abuse screen: Denies threats or abuse. mb9 17:59 Nutritional screening: No deficits noted. Tuberculosis screening: No symptoms or risk mb9 factors identified. Fall Risk None identified. Assessment: 18:00 General: Appears in no apparent distress. Behavior is calm, cooperative, appropriate mb9 for age. 18:00 Pain: Denies pain. Neuro: Level of Consciousness is awake, alert, obeys commands, mb9 Oriented to person, place, time, situation, Appropriate for age [place] Encaser are equal bilaterally Reports headache in left parietal area, frontal area, occipital area, numbness in face and left arm. Neuro: Moves all extremities. Full function Gait is steady, Speech is normal, Facial symmetry appears normal, Pupils are PERRLA, Intact CN I-XII intact. Cardiovascular: Reports fatigue, Heart tones S1 S2 present Rhythm is regular. Respiratory: Airway is patent Respiratory effort is even, unlabored, Respiratory pattern is regular, symmetrical, Breath sounds are clear bilaterally. GI: Abdomen is flat. : No signs and/or symptoms were reported regarding the genitourinary system. EENT: No signs and/or symptoms were reported regarding the EENT system. Derm: Skin is pink, warm \T\ dry. Musculoskeletal: Range of motion: intact in all extremities. 19:06 Pain: Denies pain. Neuro: Level of Consciousness is awake, alert, obeys commands, mb9 Oriented to person, place, time, situation, Appropriate for age [place] Encaser are equal bilaterally Moves all extremities. Full function Gait is steady, Speech is normal, Facial symmetry appears normal, Pupils are PERRLA, Intact Reports headache in left parietal area, frontal area, occipital area, numbness in face and left arm. Respiratory: Airway is patent Respiratory effort is even, unlabored, Respiratory pattern is regular, symmetrical. Derm: Skin is pink, warm \T\ dry. 19:48 Reassessment: Patient is alert, oriented x 3, equal unlabored respirations, skin ke1 warm/dry/pink. 20:34 Reassessment: Patient is alert, oriented x 3, equal unlabored respirations, skin ke1 warm/dry/pink. Patient states feeling better. Patient states symptoms have improved. Vital Signs: 17:53 BP 119 / 78; Pulse 65; Resp 16; Temp 98.3(TE); Pulse Ox 100% on R/A; Weight 47.63 kg bm7 (R); Height 5 ft. 0 in. (152.40 cm); Pain 0/10; 18:00 BP 112 / 68; Pulse 71; Resp 16; Pulse Ox 100% on R/A; Pain 0/10; mb9 19:07 BP 107 / 73; Pulse 68; Resp 16; Pulse Ox 100% on R/A; Pain 0/10; mb9 20:00 BP 104 / 69; Pulse 61; Resp 16; Pulse Ox 100% ; vc1 17:53 Body Mass Index 20.51 (47.63 kg, 152.40 cm) bm7 NIH Stroke Scale Scores: 20:06 NIHSS Score: 0 kdr ED Course: 17:45 Patient arrived in ED. as 17:49 Dora Hammond MD is Attending Physician. sd2 17:56 Triage completed. bm7 17:56 Arm band placed on right wrist. bm7 17:59 Placed in gown. Bed in low position. Call light in reach. Side rails up X 1. mb9 18:29 Perla Araujo RN is Primary Nurse. mb9 18:30 Initial lab(s) drawn, by in, sent to lab. Inserted saline lock: 22 gauge in right dh3 antecubital area, using aseptic technique. Blood collected. 18:38 No provider procedures requiring assistance completed. mb9 19:04 Attending Physician role handed off by Dora Hammond MD kdr 19:04 Dheeraj Marshall MD is Attending Physician. kdr 19:06 Troponin High Sensitivity Sent. mb9 19:06 Ptt, Activated Sent. mb9 19:06 Magnesium Sent. mb9 19:06 PT-INR Sent. mb9 19:06 CMP Sent. mb9 19:06 CBC with Diff Sent. mb9 19:23 Report given to WALLY Reeder. mb9 20:05 Primary Nurse role handed off by Perla Araujo RN 20:27 Lilli Delarosa, RN is Primary Nurse. vc1 20:34 IV discontinued. ke1 Administered Medications: No medications were administered Medication: 17:59 VIS not applicable for this client. mb9 Point of Care Testing: Blood Glucose: 17:56 Blood Glucose: 141 mg/dL; bm7 Ranges: Outcome: 20:12 Discharge ordered by . kdr 20:34 Discharged to home ambulatory. ke1 20:34 Condition: good 20:34 Discharge instructions given to patient. 20:34 Patient left the ED. ke1 NIH Stroke Scale - NIH Stroke Score Date: 02/22/2022 Time: 20:06 Total Score = 0 1a. Level of Consciousness (LOC) - 0(Alert) 1b. Level of Consciousness (LOC) (Month \T\ Age) - 0(Both) 1c. LOC Commands (Open \T\ Closes Eyes/Director Of Vocational Training) - 0(Both) 2. Best Gaze (Lateral Gaze Paresis) - 0(Normal) 3. Visual Field Loss - 0(No visual loss) 4. Facial Palsy - 0(Normal) 5a. Left Arm: Motor (10-second hold) - 0(No drift) 5b. Right Arm: Motor (10-second hold) - 0(No drift) 6a. Left Leg: Motor (5-second hold - always test supine) - 0(No drift) 6b. Right Leg: Motor (5-second hold - always test supine) - 0(No drift) 7. Limb Ataxia (finger/nose \T\ heel/martinez - test with eyes open) - 0(Absent) 8. Sensory Loss (pinprick arms/legs/face) - 0(Normal) 9. Best Language: Aphasia (description/naming/reading) - 0(No aphasia) 10. Dysarthria (speech clarity - read or repeat words) - 0(Normal) 11. Extinction and Inattention (visual/tactile/auditory/spatial/personal) - 0(No abnormality) Initials: kdr Signatures: Dheeraj Marshall MD MD [facility] Evon Desir Deanna 3 Maricruz Whittington RN RN bm7 Fariba Rodriguez Lilli Delarosa RN RN vc1 Laura Encarnacion RN RN ke1 Dora Hammond MD MD sd2 Perla Araujo RN RN mb9 Corrections: (The following items were deleted from the chart) 17:57 17:56 Home Meds: Ibuprofen Oral; bm7 bm7
--- NOTE | 2022-02-22 20:13 | EDPHYS ---
Physician Documentation [facility] Name: Iman Noguera Age: 31 yrs Sex: Female : 1990 Arrival Date: 02/22/2022 Time: 17:45 Bed 8 Private MD: ED Physician Dheeraj Marshall HPI: 02/22 18:12 This 31 yrs old Female presents to ER via Ambulatory with complaints of Numbness Of sd2 Arm, Numbness Of Face. 18:12 31 yo F presents with CC of paresthesia. 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 Reports she now only feels the sensation in part of her L arm and L eye. Denies any changes in vision, slurred speech or significant weakness. Has been ambulatory without difficulty. No prior similar symptoms. Reports after symptoms started, she feels as if she might have had a panic attack and had increased anxiety.. 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 - Social history:: Smoking status: Patient denies any tobacco usage or history of. ROS: 18:12 Constitutional: Negative for fever, chills, and weight loss, Eyes: Negative for injury, sd2 pain, redness, and discharge, ENT: Negative for injury, pain, and discharge, Cardiovascular: Negative for chest pain, palpitations, and edema, Respiratory: Negative for shortness of breath, cough, wheezing. Abdomen/GI: Negative for abdominal pain, nausea, vomiting, diarrhea. MS/Extremity: Negative for injury and deformity, Skin: Negative for injury, rash, and discoloration, Neuro: Negative for headache. Positive for numbness and tingling. Exam: 18:12 Constitutional: This is a well developed, well nourished patient who is awake, alert, sd2 and in no acute distress. Head/Face: Normocephalic, atraumatic. Eyes: EOMI, normal conjunctiva bilaterally Chest/axilla: Normal chest wall appearance and motion. Nontender with no deformity. Cardiovascular: Regular rate and rhythm with a normal S1 and S2. No gallops, murmurs, or rubs. 2+ distal pulses. Respiratory: Lungs have equal breath sounds bilaterally, clear to auscultation and percussion. No rales, rhonchi or wheezes noted. No increased work of breathing, no retractions or nasal flaring. Abdomen/GI: Soft, non-tender, with normal bowel sounds. No guarding or rebound. No evidence of tenderness throughout. Skin: Warm, dry with normal turgor. Normal color with no rashes, no lesions, and no evidence of cellulitis. MS/ Extremity: Pulses equal, no cyanosis. Neurovascular intact. Full, normal range of motion. Ambulatory without difficulty. Neuro: Awake and alert, GCS 15, oriented to person, place, time, and situation. Cranial nerves II-XII grossly intact. Motor strength 5/5 in all extremities. Sensory grossly intact. Cerebellar exam normal. Normal gait. Psych: Awake, alert, with orientation to person, place and time. Behavior, mood, and affect are within normal limits. 18:19 ECG was reviewed by the Attending Physician. NSR, rate 67, no STEMI criteria sd2 Vital Signs: 17:53 BP 119 / 78; Pulse 65; Resp 16; Temp 98.3(TE); Pulse Ox 100% on R/A; Weight 47.63 kg bm7 (R); Height 5 ft. 0 in. (152.40 cm); Pain 0/10; 18:00 BP 112 / 68; Pulse 71; Resp 16; Pulse Ox 100% on R/A; Pain 0/10; mb9 19:07 BP 107 / 73; Pulse 68; Resp 16; Pulse Ox 100% on R/A; Pain 0/10; mb9 20:00 BP 104 / 69; Pulse 61; Resp 16; Pulse Ox 100% ; vc1 17:53 Body Mass Index 20.51 (47.63 kg, 152.40 cm) bm7 NIH Stroke Scale Scores: 20:06 NIHSS Score: 0 kdr MDM: 18:12 Differential diagnosis: paresthesia, TIA, CVA, anemia, dehydration, electrolyte sd2 abnormality among others. Data reviewed: vital signs, nurses notes. 18:19 Patient medically screened. sd2 20:06 Counseling: I had a detailed discussion with the patient and/or guardian regarding: the kdr historical points, exam findings, and any diagnostic results supporting the discharge/admit diagnosis, lab results, radiology results, the need for outpatient follow up. Physician consultation: Rodolfo Obando MD was called at 20:10, was contacted at 20:10, regarding consult, patient's condition, would like medications started, Aspirin. 02/22 18:10 Order name: Glucose, Ancillary Testing; Complete Time: 19:52 EDMS 02/22 18:11 Order name: CBC with Diff sd2 02/22 18:11 Order name: CMP sd2 02/22 18:11 Order name: PT-INR sd2 02/22 18:11 Order name: Ptt, Activated sd2 02/22 18:11 Order name: Magnesium sd2 02/22 18:11 Order name: Troponin High Sensitivity sd2 02/22 18:11 Order name: Test, Serum sd2 02/22 18:56 Order name: Protime (+INR); Complete Time: 19:52 EDMS 02/22 18:56 Order name: PTT, Activated Partial Thromb; Complete Time: 19:52 EDMS 02/22 18:59 Order name: CBC with Automated Diff; Complete Time: 19:52 EDMS 02/22 19:11 Order name: Test Serum, [place]; Complete Time: 19:52 EDMS 02/22 19:14 Order name: Comprehensive Metabolic Panel; Complete Time: 19:52 EDMS 02/22 19:14 Order name: Troponin High Sensitivity; Complete Time: 19:52 EDMS 02/22 18:11 Order name: EKG - Nurse/Tech; Complete Time: 18:30 sd2 02/22 18:11 Order name: CT Head Brain wo Cont sd2 02/22 18:30 Order name: IV Saline Lock; Complete Time: 18:38 mb9 02/22 19:14 Order name: Magnesium; Complete Time: 19:52 EDMS 02/22 19:43 Order name: CT; Complete Time: 19:52 EDMS Administered Medications: No medications were administered Point of Care Testing: Blood Glucose: 17:56 Blood Glucose: 141 mg/dL; bm7 Ranges: Critical Glucose Levels:Adult <50 mg/dl or >400 mg/dl <40 mg/dl or >180 mg/dl Disposition Summary: 02/22/22 20:12 Discharge Ordered Location: Home kdr Problem: new kdr Symptoms: have improved kdr Condition: Stable kdr Diagnosis - Left face and arm heaviness kdr Followup: kdr - With: Private Physician - When: 2 - 3 days - Reason: If symptoms return, Further diagnostic work-up, Recheck today's complaints, Continuance of care, Re-evaluation by your physician Discharge Instructions: - Discharge Summary Sheet kdr Forms: - Medication Reconciliation Form kdr - Thank You Letter kdr NIH Stroke Scale - NIH Stroke Score Date: 02/22/2022 Time: 20:06 Total Score = 0 1a. Level of Consciousness (LOC) - 0(Alert) 1b. Level of Consciousness (LOC) (Month \T\ Age) - 0(Both) 1c. LOC Commands (Open \T\ Closes Eyes/Cone Winder) - 0(Both) 2. Best Gaze (Lateral Gaze Paresis) - 0(Normal) 3. Visual Field Loss - 0(No visual loss) 4. Facial Palsy - 0(Normal) 5a. Left Arm: Motor (10-second hold) - 0(No drift) 5b. Right Arm: Motor (10-second hold) - 0(No drift) 6a. Left Leg: Motor (5-second hold - always test supine) - 0(No drift) 6b. Right Leg: Motor (5-second hold - always test supine) - 0(No drift) 7. Limb Ataxia (finger/nose \T\ heel/martinez - test with eyes open) - 0(Absent) 8. Sensory Loss (pinprick arms/legs/face) - 0(Normal) 9. Best Language: Aphasia (description/naming/reading) - 0(No aphasia) 10. Dysarthria (speech clarity - read or repeat words) - 0(Normal) 11. Extinction and Inattention (visual/tactile/auditory/spatial/personal) - 0(No abnormality) Initials: kdr Signatures: Dispatcher [employer] EDMS Dheeraj Marshall MD MD kdr Maricruz Whittington RN RN bm7 Dora Hammond MD MD sd2 Perla Araujo RN RN mb9 Corrections: (The following items were deleted from the chart) 17:57 17:56 Home Meds: Ibuprofen Oral; bm7 bm7 18:18 18:12 31 yo F presents with CC of paresthesia. 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 Reports she now only feels the sensation in part of her L arm and L eye. Denies any changes in vision, slurred speech or significant weakness. Has been ambulatory without difficulty. No prior similar symptoms.. sd2
[2022-02-22 21:00] VITALS: TEMP 98.3; O2SAT 100
[2022-02-22 21:18] VITALS: BP 104/69
--- NOTE | 2022-02-24 14:14 | EKG ---
Test Date: 2022-02-22 Test Time: 17:59:51 Clinical Care Coordinator: OLGA MEASUREMENT RESULTS: Intervals: Rate: 67 [place]: 204 QRSD: 68 QT: 386 QTc: 407 Simpson: P: 60 [place]: 204 QRS: 91 T: 76 INTERPRETIVE STATEMENTS: Normal sinus rhythm Rightward axis Septal infarct, age undetermined Abnormal ECG Compared to ECG 06/22/2018 05:28:18 Right-axis deviation now present Myocardial infarct finding now present First degree AV block no longer present Electronically Signed On 02-24-22 14:13:04 CDT by Jacinto Martinez
== END 2022-02-22 20:34 | disposition home or self-care (01) ==
LOC: ER 17:44
DX: R20.0 Anesthesia of skin (principal)
CPT/HCPCS: 36415; 70450; 80053; 82947; 83735; 84484; 84703; 85025; 85610; 85730; 93005; 99283